=== PATIENT | male | born 1970 | race African-American/Black ===

== ENCOUNTER 2019-05-22 07:49 | Emergency (ER) | payer SELFPAY ==
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
--- OUTSIDE RECORDS SUMMARY | 2019-05-22 07:55 | XMS REPORT | Summary of Care ---
:1970 Author Name Mariah Sneed R.N. 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 Abscess of left thigh (682.6, L02.416) Status: Active Medications Name Dates Details No Reported Medications Refills: 0 Active Allergies and Adverse Reactions Name Dates Details No Known Drug Allergies (Allergy) Status: Active Procedures Procedure Dates Details Procedures not documented Immunization Name Dates Details Immunizations not documented Social History Name Dates Details - Status: Name Dates Details Current every day smoker Vital Signs Date Test Result Details [id number] Height 75 in Status: Results Date Description Value Details Results not documented Plan of Care Name Dates Details Planned Observations Planned Goals not documented Planned Encounters Appointment; GENERAL, SERVICE On: 18-Mar-2019 13:15 Instructions Name Dates Details Instructions not documented Encounters Appointment; GENERAL, SERVICE On: 18-Feb-2019 13:00 Encounter Diagnosis: Problem not documented
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
--- OUTSIDE RECORDS SUMMARY | 2019-05-22 07:55 | XMS REPORT ---
:1970 [facility] Address [address] [place] [address] Care Team Providers Name Role Phone Unavailable Unavailable Unavailable Payers Payer Name Policy Type Policy Number Effective Date Expiration Date Problems This patient has no known problems. Allergies, Adverse Reactions, Alerts Allergy Allergy Status Severity Reaction(s) Onset Inactive Treating Comments Name Type Date Date Clinician No Known DA Active U 2018-12 Allergies - 00:00:0 0 No Known DA Active U 2018-12 Allergies - 00:00:0 0 No Known DA Active U 2011-04 Allergies - 00:00:0 0 Medications This patient has no known medications. Results Test Description Test Time Test Comments Text Results Atomic Results Result Comments ENCEPHALITIS PANEL 2019-02-17 12:39:00 Test Item Value Reference Range Comments AB ENCEPHALITIS ST NEGATIVE TITER NEGATIVE PRICILLA-IGM (test code=ENCSTMAB) SOURCE (test code=SOURCE) CEREBRAL SPINAL FLD AB WEST NILE VIRUS IGM NEGATIVE Results of Arbovirus IgM MELISSA (test code=WESNIABIGM) serve only as an aid todiagnosis and should be interpreted in relation to thepatient's clinical picture, other diagnostic findings, andepidemiological data. Lack of serological evidence forarbovirus infection may reflect testing of acute phase serumobtained before antibodies are produced. Antibodies toflaviviruses exhibit cross reactivity and their detection islimited in it usefulness in differentiating specificflaviviruses. The test has not been approved or cleared bythe Food and Drug Administration. COMMENTS: CSFAB ECHOVIRUS PANEL [id number] 12:39:00 Test Item Value Reference Range Comments AB ECHOVIRUS 9 AB CSF (test <1:10 < 1:10 code=NTBT8PAVVQ) AB ECHOVIRUS 11 AB CSF <1:10 < 1:10 (test code=[id number]) AB ECHOVIRUS 30 AB CSF <1:10 <1:10 This data was established following (test code=[id number]) evaluation of anormal population withoutany current infection of these echovirus subtypes.The clinical significance and criteria for theinterpretation of Echovirussubtypes 6, 7, 9, 11 and 30 performed on cerebrospinalfluid has not beenestablished.The performance characteristics of the listed assays werevalidated by [employer]. The [place] FDA has not approved or clearedthese tests. Theresults of these assays can be used for clinicaldiagnosis without FDA approval.[employer]. is a CLIA certified, CAPaccredited laboratory forperforming high complexity assays such as these.Testing Performed at: [facility] [address] [place], [place] [id number] At: E=[facility] [address] [id number] Medrano MD Ph:[phone] AB ECHOVIRUS 7 AB CSF (test <1:10 < 1:10 code=XQCT1XNGTD) ECHOVIRUS 6 AB CSF (test <1:10 < 1:10 code=AAYJ9NGP) COMMENTS: CSFWEST NILE VIRUS AB PANEL [id number] 12:39:00 Test Item Value Reference Range Comments AB WEST NILE VIRUS IGG Negative Negative No detectable West Nile Virus IgG CSF (test Antibody. If a recentinfection is code=WSNIABGCSF) suspected, another specimen should besubmitted for testing within 7-14 days. AB [place]ST [place] VIRUS IGM Negative Negative No detectable West Nile Virus IgM CSF (test Antibody. If a recentinfection is code=WSNIABMCSF) suspected, another specimen should besubmitted for testing within 7-14 days.Performed At: [address] [id number] Sanjai MD Ph:[phone] COMMENTS: CSFENCEPHALITIS [id number] 10:44:00 Test Item Value Reference Range Comments AB ENCEPHALITIS JUANJO-IGM (test code=ENCSTMAB) TITER NEGATIVE SOURCE (test code=SOURCE) AB WEST NILE VIRUS IGM (test code=WESNIABIGM) COMMENTS: CSFAB ECHOVIRUS PANEL [id number] 10:44:00 Test Item Value Reference Range Comments AB ECHOVIRUS 9 AB CSF (test <1:10 < 1:10 code=SPRZ6JMZNM) AB ECHOVIRUS 11 AB CSF <1:10 < 1:10 (test code=[id number]) AB ECHOVIRUS 30 AB CSF <1:10 <1:10 This data was established following (test code=JEDZ84QDOJR) evaluation of anormal population withoutany current infection of these echovirus subtypes.The clinical significance and criteria for theinterpretation of Echovirussubtypes 6, 7, 9, 11 and 30 performed on cerebrospinalfluid has not beenestablished.The performance characteristics of the listed assays werevalidated by [employer]. The [place] FDA has not approved or clearedthese tests. Theresults of these assays can be used for clinicaldiagnosis without FDA approval.[employer] is a CLIA certified, CAPaccredited laboratory forperforming high complexity assays such as these.Testing Performed at: [facility] [address] [place], [place] [id number] At: E=[facility] [address] [id number] Medrano MD Ph:[phone] AB ECHOVIRUS 7 AB CSF (test <1:10 < 1:10 code=DHNR2EZXMJ) ECHOVIRUS 6 AB CSF (test <1:10 < 1:10 code=HMMY9RQM) COMMENTS: CSFWEST NILE VIRUS AB PANEL [id number] 10:44:00 Test Item Value Reference Range Comments AB WEST NILE VIRUS IGG Negative Negative No detectable West Nile Virus IgG CSF (test Antibody. If a recentinfection is code=WSNIABGCSF) suspected, another specimen should besubmitted for testing within 7-14 days. AB [place] VIRUS IGM Negative Negative No detectable West Nile Virus IgM CSF (test Antibody. If a recentinfection is code=WSNIABMCSF) suspected, another specimen should besubmitted for testing within 7-14 days.Performed At: [address] [id number] Sanjai MD Ph:[phone] COMMENTS: CSFENCEPHALITIS [id number] 15:09:00 Test Item Value Reference Range Comments AB ENCEPHALITIS JUANJO-IGM (test code=ENCSTMAB) TITER NEGATIVE SOURCE (test code=SOURCE) AB WEST NILE VIRUS IGM (test code=WESNIABIGM) COMMENTS: CSFAB ECHOVIRUS PANEL [id number] 15:09:00 Test Item Value Reference Range Comments AB ECHOVIRUS 9 AB CSF (test <1:10 < 1:10 code=BELA3PRSZD) AB ECHOVIRUS 11 AB CSF <1:10 < 1:10 (test code=JECG87MIVKN) AB ECHOVIRUS 30 AB CSF <1:10 <1:10 This data was established following (test code=OQUD98QVYWE) evaluation of anormal population withoutany current infection of these echovirus subtypes.The clinical significance and criteria for theinterpretation of Echovirussubtypes 6, 7, 9, 11 and 30 performed on cerebrospinalfluid has not beenestablished.The performance characteristics of the listed assays werevalidated by [employer]. The [place] FDA has not approved or clearedthese tests. Theresults of these assays can be used for clinicaldiagnosis without FDA approval.[employer] is a CLIA certified, CAPaccredited laboratory forperforming high complexity assays such as these.Testing Performed at: [facility] [address] [place], [place] [id number] At: E=[facility] [address] [id number] Medrano MD Ph:[phone] AB ECHOVIRUS CF (test code=ECHOAB) AB ECHOVIRUS 7 AB CSF (test <1:10 < 1:10 code=CYGP1XPKQT) ECHOVIRUS 6 AB CSF (test <1:10 < 1:10 code=XIYL9LOG) COMMENTS: CSFWEST NILE VIRUS AB PANEL [id number] 15:09:00 Test Item Value Reference Range Comments AB WEST NILE VIRUS IGG Negative Negative No detectable West Nile Virus IgG CSF (test Antibody. If a recentinfection is code=WSNIABGCSF) suspected, another specimen should besubmitted for testing within 7-14 days. AB [place] VIRUS IGM Negative Negative No detectable West Nile Virus IgM CSF (test Antibody. If a recentinfection is code=WSNIABMCSF) suspected, another specimen should besubmitted for testing within 7-14 days.Performed At: [facility] [id number] Sanjai MD Ph:[phone] COMMENTS: CSF- DUP VEIN UNI/[id number] 14:04:00 Name: RADHA DENNISON [facility] : 1970 Age/S: 48 / M [address] [place] [address] Blvd Unit #: [id number] Loc: [place], [id number] Phys: Clovis Francisco MD Acct: [id number] Dis Date: Status: ADM IN PHONE #: [phone] Exam Date: 12/29/2018 1318 FAX #: [phone] Reason: EDEMA/PAIN/REDNESS EXAMS: CPTCODE: [id number] DUP VEIN UNI/LTD [id number] Left lower extremity Doppler US performed on December 29, 2018. CLINICAL HISTORY: Edema, pain, redness. COMPARISON: December 17, 2018. DISCUSSION: Real-time lund scale sonography, color Doppler and spectral waveform analysis was performed of the deep venous structures of the left lower extremity, including the common femoral vein, the femoral vein andthe popliteal vein. There is normal flow and compressibility through out, with normal responseto respiration and augmentation. Visualized calf veins to the level of the ankle are within normal limits. IMPRESSION: 1. No sonographic evidence of deep venous thrombosis in the visualized vessels. at 1404 Reported and signed by: Brigitte Rangel M.D. CC : Tyler Hirsch DO; Clovis Francisco MD Technologist: Alexandra Raymond RDMS(AB) Trnscb Date/Time: 12/29/2018 (1403) Dahlia Franco Print D/T: S: 12/29/2018 (0651) Probe : PAGE 1 Signed [id number] 12:35: 00 Test Item Value Reference Range Comments GLUBED (test code=GLUBED) 127 MG/DL 70-110 Performed by certified line up machine operator at [facility] [id number] 08:12:00 Test Item Value Reference Range Comments GLUBED (test code=GLUBED) 145 MG/DL 70-110 Performed by certified line up machine operator at [facility] CBC W/AUTO [id number] 07:32:00 Test Item Value Reference Range Comments WHITE BLOOD CELL (test code=WBC) 15.42 x10 3/uL 4.5-11.0 RED BLOOD CELL (test code=RBC) 4.94 x10 6/uL 4.00-5.60 HEMOGLOBIN (test code=HGB) 14.4 g/dL 12.5-16.9 HEMATOCRIT (test code=HCT) 44.6 % 37.5-50.7 MEAN CELL VOLUME (test code=MCV) 90.3 fL 81.0-99.0 MEAN CELL HGB (test code=MCH) 29.1 pg 27.0-33.0 MEAN CELL HGB CONCETRATION (test code=MCHC) 32.3 g/dL 33.0-37.0 RED CELL DISTRIBUTION WIDTH CV (test 13.8 % 11.5-14.5 code=RDW) RED CELL DISTRIBUTION WIDTH SD (test 46.0 fL 37.0-54.0 code=RDW-SD) PLATELET COUNT (test code=PLT) 242 x10 3/uL 150-400 MEAN PLATELET VOLUME (test code=MPV) 10.7 fL 7.0-9.0 NEUTROPHIL % (test code=NT%) 68.6 % 56.0-77.0 IMMATURE GRANULOCYTE % (test code=IG%) 2.3 % 0.0-2.0 LYMPHOCYTE % (test code=LY%) 21.1 % 14.0-32.0 MONOCYTE % (test code=MO%) 7.6 % 4.8-9.0 EOSINOPHIL % (test code=EO%) 0.1 % 0.3-3.7 BASOPHIL % (test code=BA%) 0.3 % 0.0-2.0 NUCLEATED RBC % (test code=NRBC%) 0.0 % 0-0 NEUTROPHIL # (test code=NT#) 10.57 x10 3/uL 2.0-7.6 IMMATURE GRANULOCYTE # (test code=IG#) 0.36 x10 3/uL 0.00-0.03 LYMPHOCYTE # (test code=LY#) 3.25 x10 3/uL 1.0-3.8 MONOCYTE # (test code=MO#) 1.17 x10 3/uL 0.1-0.8 EOSINOPHIL # (test code=EO#) 0.02 x10 3/uL 0.0-0.2 BASOPHIL # (test code=BA#) 0.05 x10 3/uL 0.0-0.2 NUCLEATED RBC # (test code=NRBC#) 0.00 x10 3/uL 0.0-0.1 MANUAL DIFF REQUIRED (test code=MDIFF) NO BASIC METABOLIC [id number] 07:31:00 Test Item Value Reference Range Comments SODIUM (test code=NA) 132 mEq/L 134-147 POTASSIUM (test code=K) 4.4 mEq/L 3.4-5.0 CHLORIDE (test code=CL) 98 mEq/L 100-108 CARBON DIOXIDE (test code=CO2) 28 mEq/L 21-33 ANION GAP (test code=GAP) 10 0-20 GLUCOSE (test code=GLU) 112 mg/dL 70-110 BLOOD UREA NITROGEN (test 13 mg/dL 7-18 code=BUN) GLOMERULAR FILTRATION RATE 85.7 90-95 Units of measure=ml/min/1.73 (test code=GFR) m2 CREATININE (test code=CREAT) 1.1 mg/dL 0.6-1.3 CALCIUM (test code=CA) 8.8 mg/dL 8.0-10.5 [id number] 20:42:00 Test Item Value Reference Range Comments GLUBED (test code=GLUBED) 174 MG/DL 70-110 Performed by certified line up machine operator at [facility] [id number] 17:08:00 Test Item Value Reference Range Comments GLUBED (test code=GLUBED) 129 MG/DL 70-110 Performed by certified line up machine operator at [facility] [id number] 12:27:00 Test Item Value Reference Range Comments GLUBED (test code=GLUBED) 86 MG/DL 70-110 Performed by certified line up machine operator at [facility] CBC W/AUTO [id number] 09:02:00 Test Item Value Reference Range Comments WHITE BLOOD CELL (test code=WBC) 13.40 x10 3/uL 4.5-11.0 RED BLOOD CELL (test code=RBC) 4.95 x10 6/uL 4.00-5.60 HEMOGLOBIN (test code=HGB) 14.2 g/dL 12.5-16.9 HEMATOCRIT (test code=HCT) 44.7 % 37.5-50.7 MEAN CELL VOLUME (test code=MCV) 90.3 fL 81.0-99.0 MEAN CELL HGB (test code=MCH) 28.7 pg 27.0-33.0 MEAN CELL HGB CONCETRATION (test code=MCHC) 31.8 g/dL 33.0-37.0 RED CELL DISTRIBUTION WIDTH CV (test 13.9 % 11.5-14.5 code=RDW) RED CELL DISTRIBUTION WIDTH SD (test 46.2 fL 37.0-54.0 code=RDW-SD) PLATELET COUNT (test code=PLT) 239 x10 3/uL 150-400 MEAN PLATELET VOLUME (test code=MPV) 10.6 fL 7.0-9.0 NEUTROPHIL % (test code=NT%) 58.9 % 56.0-77.0 IMMATURE GRANULOCYTE % (test code=IG%) 1.9 % 0.0-2.0 LYMPHOCYTE % (test code=LY%) 31.4 % 14.0-32.0 MONOCYTE % (test code=MO%) 7.4 % 4.8-9.0 EOSINOPHIL % (test code=EO%) 0.1 % 0.3-3.7 BASOPHIL % (test code=BA%) 0.3 % 0.0-2.0 NUCLEATED RBC % (test code=NRBC%) 0.0 % 0-0 NEUTROPHIL # (test code=NT#) 7.88 x10 3/uL 2.0-7.6 IMMATURE GRANULOCYTE # (test code=IG#) 0.26 x10 3/uL 0.00-0.03 LYMPHOCYTE # (test code=LY#) 4.21 x10 3/uL 1.0-3.8 MONOCYTE # (test code=MO#) 0.99 x10 3/uL 0.1-0.8 EOSINOPHIL # (test code=EO#) 0.02 x10 3/uL 0.0-0.2 BASOPHIL # (test code=BA#) 0.04 x10 3/uL 0.0-0.2 NUCLEATED RBC # (test code=NRBC#) 0.00 x10 3/uL 0.0-0.1 MANUAL DIFF REQUIRED (test code=MDIFF) NO [id number] 08:21:00 Test Item Value Reference Range Comments GLUBED (test code=GLUBED) 121 MG/DL 70-110 Performed by certified line up machine operator at [facility] BASIC METABOLIC [id number] 07:19:00 Test Item Value Reference Range Comments SODIUM (test code=NA) 134 mEq/L 134-147 POTASSIUM (test code=K) 4.4 mEq/L 3.4-5.0 CHLORIDE (test code=CL) 100 mEq/L 100-108 CARBON DIOXIDE (test code=CO2) 28 mEq/L 21-33 ANION GAP (test code=GAP) 10 0-20 GLUCOSE (test code=GLU) 114 mg/dL 70-110 BLOOD UREA NITROGEN (test 19 mg/dL 7-18 code=BUN) GLOMERULAR FILTRATION RATE 95.7 90-95 Units of measure=ml/min/1.73 (test code=GFR) m2 CREATININE (test code=CREAT) 1.0 mg/dL 0.6-1.3 CALCIUM (test code=CA) 8.8 mg/dL 8.0-10.5 [id number] 20:40:00 Test Item Value Reference Range Comments GLUBED (test code=GLUBED) 181 MG/DL 70-110 Performed by certified line up machine operator at [facility] [id number] 20:39:00 Test Item Value Reference Range Comments GLUBED (test code=GLUBED) 121 MG/DL 70-110 Performed by certified line up machine operator at [facility] [id number] 12:21:00 Test Item Value Reference Range Comments GLUBED (test code=GLUBED) 144 MG/DL 70-110 Performed by certified line up machine operator at [facility] BASIC METABOLIC [id number] 08:23:00 Test Item Value Reference Range Comments SODIUM (test code=NA) 135 mEq/L 134-147 POTASSIUM (test code=K) 4.3 mEq/L 3.4-5.0 CHLORIDE (test code=CL) 100 mEq/L 100-108 CARBON DIOXIDE (test code=CO2) 28 mEq/L 21-33 ANION GAP (test code=GAP) 11 0-20 GLUCOSE (test code=GLU) 94 mg/dL 70-110 BLOOD UREA NITROGEN (test 18 mg/dL 7-18 code=BUN) GLOMERULAR FILTRATION RATE 123.8 90-95 Units of measure=ml/min/1.73 (test code=GFR) m2 CREATININE (test code=CREAT) 0.8 mg/dL 0.6-1.3 CALCIUM (test code=CA) 8.7 mg/dL 8.0-10.5 [id number] 08:19:00 Test Item Value Reference Range Comments GLUBED (test code=GLUBED) 96 MG/DL 70-110 Performed by certified line up machine operator at [facility] CBC W/AUTO [id number] 07:24:00 Test Item Value Reference Range Comments WHITE BLOOD CELL (test code=WBC) 14.60 x10 3/uL 4.5-11.0 RED BLOOD CELL (test code=RBC) 5.06 x10 6/uL 4.00-5.60 HEMOGLOBIN (test code=HGB) 14.5 g/dL 12.5-16.9 HEMATOCRIT (test code=HCT) 45.9 % 37.5-50.7 MEAN CELL VOLUME (test code=MCV) 90.7 fL 81.0-99.0 MEAN CELL HGB (test code=MCH) 28.7 pg 27.0-33.0 MEAN CELL HGB CONCETRATION (test code=MCHC) 31.6 g/dL 33.0-37.0 RED CELL DISTRIBUTION WIDTH CV (test 13.8 % 11.5-14.5 code=RDW) RED CELL DISTRIBUTION WIDTH SD (test 46.1 fL 37.0-54.0 code=RDW-SD) PLATELET COUNT (test code=PLT) 262 x10 3/uL 150-400 MEAN PLATELET VOLUME (test code=MPV) 10.9 fL 7.0-9.0 NEUTROPHIL % (test code=NT%) 57.7 % 56.0-77.0 IMMATURE GRANULOCYTE % (test code=IG%) 2.2 % 0.0-2.0 LYMPHOCYTE % (test code=LY%) 32.5 % 14.0-32.0 MONOCYTE % (test code=MO%) 7.1 % 4.8-9.0 EOSINOPHIL % (test code=EO%) 0.1 % 0.3-3.7 BASOPHIL % (test code=BA%) 0.4 % 0.0-2.0 NUCLEATED RBC % (test code=NRBC%) 0.0 % 0-0 NEUTROPHIL # (test code=NT#) 8.41 x10 3/uL 2.0-7.6 IMMATURE GRANULOCYTE # (test code=IG#) 0.32 x10 3/uL 0.00-0.03 LYMPHOCYTE # (test code=LY#) 4.75 x10 3/uL 1.0-3.8 MONOCYTE # (test code=MO#) 1.04 x10 3/uL 0.1-0.8 EOSINOPHIL # (test code=EO#) 0.02 x10 3/uL 0.0-0.2 BASOPHIL # (test code=BA#) 0.06 x10 3/uL 0.0-0.2 NUCLEATED RBC # (test code=NRBC#) 0.00 x10 3/uL 0.0-0.1 MANUAL DIFF REQUIRED (test code=MDIFF) NO [id number] 20:25:00 Test Item Value Reference Range Comments GLUBED (test code=GLUBED) 157 MG/DL 70-110 Performed by certified line up machine operator at [facility] [id number] 20:25:00 Test Item Value Reference Range Comments GLUBED (test code=GLUBED) 112 MG/DL 70-110 Performed by certified line up machine operator at [facility] CSF IGG SYNTHESIS [id number] 13:16:00 Test Item Value Reference Range Comments CSF ALBUMIN (test code=ALBCSF) 77 mg/dL 11-48 CSF IMMUNOGLOBULIN G (test 10.2 mg/dL 0.0-8.6 code=IGGCSF) CSF IGG INDEX (test 0.8 0.0-0.7 code=IGGINCSF) CSF IGG SYNTHESIS (test 21.6 mg/day 9.9 TO +3.3 code=IGGSYNCSF) CSF IGG/ALBUMIN RATIO (test 0.13 0.00-0.25 code=IGGALBCSF) SERUM IMMUNOGLOBULIN G (test 688 mg/dL 700-1600 code=IGGMS) SERUM ALBUMIN (test 4.3 g/dL 3.5-5.5 code=ALBMS) SERUM ALBUMIN INDEX (test 18 0-8 Relationship to code=ALBINDMS) blood-brain barrier: Consistent with an intact barrier <9 Slight impairment 9 - 14 Moderate impairment 14 - 30 Severe impairment 30 - 100 Complete breakdown >100Performed At: [facility] [id number] Lyle MD Ph:[phone] At: [facility] [id number] Paulie Monteiro MD Ph:[phone] CSF OLIGOCLONAL BAND [id number] 13:16:00 Test Item Value Reference Range Comments CSF OLIGOCLONAL BANDS (test () Zero (0) oligoclonal bands were code=OLIGCSF) observed in the CSF.Interpretation: Criteria for Positivity: Four (4) or more oligoclonalbands observed only in the CSF have been shown to be mostconsistent with MS using our method. [Sarah , Antonio, Cody GREER, and Carter JA: Cerebrospinal FluidOligoclonal Bands in the Diagnosis of Multiple Sclerosis.Am J Clin Pathol 120(5):672-675, 2003]. Oligoclonal bands that are present only in the CSF havebeen associated with a variety of inflammatory braindiseases such as multiple sclerosis (MS), subacuteencephalitis, neurosyphilis, etc. Increased IgG in the CSFis not specific for MS, but is an indication of chronicneural inflammation. Clinical correlation indicated. Approximately 2-3% of clinically confirmed MS patientsshow little or no evidence of oligoclonal bands in theCSF; however oligoclonal bands may develop as the diseaseprogresses. Oligoclonal Banding testing performed using IsoelectricFocusing (IEF) and immunoblotting methodology.Performed At: [facility] [id number] Lyle MD Ph:[phone] [id number] 12:24:00 Test Item Value Reference Range Comments GLUBED (test code=GLUBED) 154 MG/DL 70-110 Performed by certified line up machine operator at [facility] [id number] 11:00:00 Test Item Value Reference Range Comments GLUBED (test code=GLUBED) 121 MG/DL 70-110 Performed by certified line up machine operator at [facility] BASIC METABOLIC [id number] 07:34:00 Test Item Value Reference Range Comments SODIUM (test code=NA) 135 mEq/L 134-147 POTASSIUM (test code=K) 4.5 mEq/L 3.4-5.0 CHLORIDE (test code=CL) 101 mEq/L 100-108 CARBON DIOXIDE (test code=CO2) 26 mEq/L 21-33 ANION GAP (test code=GAP) 13 0-20 GLUCOSE (test code=GLU) 114 mg/dL 70-110 BLOOD UREA NITROGEN (test 19 mg/dL 7-18 code=BUN) GLOMERULAR FILTRATION RATE 108.1 90-95 Units of measure=ml/min/1.73 (test code=GFR) m2 CREATININE (test code=CREAT) 0.9 mg/dL 0.6-1.3 CALCIUM (test code=CA) 8.5 mg/dL 8.0-10.5 CBC W/AUTO [id number] 07:11:00 Test Item Value Reference Range Comments WHITE BLOOD CELL (test code=WBC) 20.39 x10 3/uL 4.5-11.0 RED BLOOD CELL (test code=RBC) 4.99 x10 6/uL 4.00-5.60 HEMOGLOBIN (test code=HGB) 14.4 g/dL 12.5-16.9 HEMATOCRIT (test code=HCT) 44.8 % 37.5-50.7 MEAN CELL VOLUME (test code=MCV) 89.8 fL 81.0-99.0 MEAN CELL HGB (test code=MCH) 28.9 pg 27.0-33.0 MEAN CELL HGB CONCETRATION (test code=MCHC) 32.1 g/dL 33.0-37.0 RED CELL DISTRIBUTION WIDTH CV (test 13.5 % 11.5-14.5 code=RDW) RED CELL DISTRIBUTION WIDTH SD (test 44.7 fL 37.0-54.0 code=RDW-SD) PLATELET COUNT (test code=PLT) 270 x10 3/uL 150-400 MEAN PLATELET VOLUME (test code=MPV) 11.0 fL 7.0-9.0 NEUTROPHIL % (test code=NT%) 75.1 % 56.0-77.0 IMMATURE GRANULOCYTE % (test code=IG%) 2.3 % 0.0-2.0 LYMPHOCYTE % (test code=LY%) 10.5 % 14.0-32.0 MONOCYTE % (test code=MO%) 11.7 % 4.8-9.0 EOSINOPHIL % (test code=EO%) 0.0 % 0.3-3.7 BASOPHIL % (test code=BA%) 0.4 % 0.0-2.0 NUCLEATED RBC % (test code=NRBC%) 0.0 % 0-0 NEUTROPHIL # (test code=NT#) 15.32 x10 3/uL 2.0-7.6 IMMATURE GRANULOCYTE # (test code=IG#) 0.46 x10 3/uL 0.00-0.03 LYMPHOCYTE # (test code=LY#) 2.15 x10 3/uL 1.0-3.8 MONOCYTE # (test code=MO#) 2.38 x10 3/uL 0.1-0.8 EOSINOPHIL # (test code=EO#) 0.00 x10 3/uL 0.0-0.2 BASOPHIL # (test code=BA#) 0.08 x10 3/uL 0.0-0.2 NUCLEATED RBC # (test code=NRBC#) 0.00 x10 3/uL 0.0-0.1 MANUAL DIFF REQUIRED (test code=MDIFF) NO [id number] 01:11:00 Test Item Value Reference Range Comments GLUBED (test code=GLUBED) 185 MG/DL 70-110 Performed by certified line up machine operator at [facility] [id number] 17:12:00 Test Item Value Reference Range Comments GLUBED (test code=GLUBED) 183 MG/DL 70-110 Performed by certified line up machine operator at [facility] CSF [id number] 14:09:00 Test Item Value Reference Range Comments CSF PROTEIN (test 106.0 mg/dL 0.0-44.0 code=PROTECSF) CSF PREALBUMIN % (test 2.2 % 2.2-7.1 code=PREALB%) CSF ALBUMIN % (test 61.3 % 56.8-76.4 code=ALBCSF%) CSF PCKUW-7-HHQFSSBG % 3.4 % 1.1-6.6 (test code=A1GCSF%) CSF KPUON-9-FGYLGSYE % 10.0 % 3.0-12.6 (test code=A2GCSF%) CSF BETA GLOBULIN % (test 13.8 % 7.3-17.9 code=BGCSF%) CSF GAMMA GLOBULIN % 9.3 % 3.0-13.0 Protein electrophoresis scan (test code=GGCSF%) will follow via computer,mail, or eeg tech delivery. CSF M SPIKE % (test Not Observed % Not Observed Performed At: [facility] code=MSCSF%) [address] [id number] Paulie Monteiro MD Ph:[phone] At: [facility] [id number] Lyle MD Ph:[phone] COMMENTS: PLEASE USE TUBE #3CSF VDRL [id number] 14:09:00 Test Item Value Reference Range Comments CSF VDRL QUAL (test Non Reactive Non [place]:<1:1 Performed At: [facility] code=VDRLCSFQL) [address] [id number] Lyle MD Ph:[phone] COMMENTS: PLEASE USE TUBE #3CSF IGG SYNTHESIS [id number] 14:09:00 Test Item Value Reference Range Comments CSF ALBUMIN (test code=ALBCSF) 77 mg/dL 11-48 CSF IMMUNOGLOBULIN G (test 10.2 mg/dL 0.0-8.6 code=IGGCSF) CSF IGG INDEX (test 0.8 0.0-0.7 code=IGGINCSF) CSF IGG SYNTHESIS (test 21.6 mg/day 9.9 TO +3.3 code=IGGSYNCSF) CSF IGG/ALBUMIN RATIO (test 0.13 0.00-0.25 code=IGGALBCSF) SERUM IMMUNOGLOBULIN G (test 688 mg/dL 700-1600 code=IGGMS) SERUM ALBUMIN (test 4.3 g/dL 3.5-5.5 code=ALBMS) SERUM ALBUMIN INDEX (test 18 0-8 Relationship to code=ALBINDMS) blood-brain barrier: Consistent with an intact barrier <9 Slight impairment 9 - 14 Moderate impairment 14 - 30 Severe impairment 30 - 100 Complete breakdown >100Performed At: [facility] [id number] Lyle MD Ph:[phone] At: [facility] [id number] [place], [place] [id number] Paulie Monteiro MD Ph:[phone] CSF OLIGOCLONAL BAND [id number] 14:09:00 Test Item Value Reference Range Comments CSF OLIGOCLONAL BANDS (test () Zero (0) oligoclonal bands were code=OLIGCSF) observed in the CSF.Interpretation: Criteria for Positivity: Four (4) or more oligoclonalbands observed only in the CSF have been shown to be mostconsistent with MS using our method. [Sarah , Antonio, Cody GREER, and Carter HANNA: Cerebrospinal FluidOligoclonal Bands in the Diagnosis of Multiple Sclerosis.Am J Clin Pathol 120(5):672-675, 2003]. Oligoclonal bands that are present only in the CSF havebeen associated with a variety of inflammatory braindiseases such as multiple sclerosis (MS), subacuteencephalitis, neurosyphilis, etc. Increased IgG in the CSFis not specific for MS, but is an indication of chronicneural inflammation. Clinical correlation indicated. Approximately 2-3% of clinically confirmed MS patientsshow little or no evidence of oligoclonal bands in theCSF; however oligoclonal bands may develop as the diseaseprogresses. Oligoclonal Banding testing performed using IsoelectricFocusing (IEF) and immunoblotting methodology.Performed At: [facility] [address] [id number] Lyle MD Ph:[phone] OLIGOCLONAL BAND SR (test code=OLIGSR) [id number] 13:17:00 Test Item Value Reference Range Comments GLUBED (test code=GLUBED) 253 MG/DL 70-110 Performed by certified line up machine operator at [facility] ADENOVIRUS DNA, REAL TIME [id number] 10:23:00 Test Item Value Reference Range Comments ADENOVIRUS DNA, REAL TIME PCR Not Detected copies/mL (test code=ADENOPCRQNBF) TESTING PERFORMED AT LOW VOLUME ON CSF SPECIMEN FORADENOVIRUS, MAY AFFECT RESULTS. Assay Range: 109 copies/mL to 1.00E+10 copies/mLThe limit of quantitation (LOQ) is 109 copies/mL.Adenovirus DNA detected below the LOQ will be reported asDetected:<109 copies/mL. This test was developed and its performance characteristics determined by [employer]. It has not been cleared or approved by the U.S. Food and Drug Administration. Results should be used in conjunction with clinical findings, and should not form the sole basis for a diagnosis or treatment decision. [id number] 09:03:00 Test Item Value Reference Range Comments GLUBED (test code=GLUBED) 146 MG/DL 70-110 Performed by certified line up machine operator at [facility] BASIC METABOLIC [id number] 07:47:00 Test Item Value Reference Range Comments SODIUM (test code=NA) 134 mEq/L 134-147 POTASSIUM (test code=K) 4.4 mEq/L 3.4-5.0 CHLORIDE (test code=CL) 101 mEq/L 100-108 CARBON DIOXIDE (test code=CO2) 25 mEq/L 21-33 ANION GAP (test code=GAP) 12 0-20 GLUCOSE (test code=GLU) 145 mg/dL 70-110 BLOOD UREA NITROGEN (test 22 mg/dL 7-18 code=BUN) GLOMERULAR FILTRATION RATE 108.1 90-95 Units of measure=ml/min/1.73 (test code=GFR) m2 CREATININE (test code=CREAT) 0.9 mg/dL 0.6-1.3 CALCIUM (test code=CA) 8.5 mg/dL 8.0-10.5 CBC W/AUTO [id number] 07:04:00 Test Item Value Reference Range Comments WHITE BLOOD CELL (test code=WBC) 19.69 x10 3/uL 4.5-11.0 RED BLOOD CELL (test code=RBC) 4.85 x10 6/uL 4.00-5.60 HEMOGLOBIN (test code=HGB) 14.2 g/dL 12.5-16.9 HEMATOCRIT (test code=HCT) 44.3 % 37.5-50.7 MEAN CELL VOLUME (test code=MCV) 91.3 fL 81.0-99.0 MEAN CELL HGB (test code=MCH) 29.3 pg 27.0-33.0 MEAN CELL HGB CONCETRATION (test code=MCHC) 32.1 g/dL 33.0-37.0 RED CELL DISTRIBUTION WIDTH CV (test 13.8 % 11.5-14.5 code=RDW) RED CELL DISTRIBUTION WIDTH SD (test 46.3 fL 37.0-54.0 code=RDW-SD) PLATELET COUNT (test code=PLT) 275 x10 3/uL 150-400 MEAN PLATELET VOLUME (test code=MPV) 10.7 fL 7.0-9.0 NEUTROPHIL % (test code=NT%) 80.5 % 56.0-77.0 IMMATURE GRANULOCYTE % (test code=IG%) 1.6 % 0.0-2.0 LYMPHOCYTE % (test code=LY%) 10.5 % 14.0-32.0 MONOCYTE % (test code=MO%) 7.2 % 4.8-9.0 EOSINOPHIL % (test code=EO%) 0.0 % 0.3-3.7 BASOPHIL % (test code=BA%) 0.2 % 0.0-2.0 NUCLEATED RBC % (test code=NRBC%) 0.0 % 0-0 NEUTROPHIL # (test code=NT#) 15.85 x10 3/uL 2.0-7.6 IMMATURE GRANULOCYTE # (test code=IG#) 0.32 x10 3/uL 0.00-0.03 LYMPHOCYTE # (test code=LY#) 2.07 x10 3/uL 1.0-3.8 MONOCYTE # (test code=MO#) 1.41 x10 3/uL 0.1-0.8 EOSINOPHIL # (test code=EO#) 0.00 x10 3/uL 0.0-0.2 BASOPHIL # (test code=BA#) 0.04 x10 3/uL 0.0-0.2 NUCLEATED RBC # (test code=NRBC#) 0.00 x10 3/uL 0.0-0.1 MANUAL DIFF REQUIRED (test code=MDIFF) NO [id number] 00:25:00 Test Item Value Reference Range Comments GLUBED (test code=GLUBED) 282 MG/DL 70-110 Performed by certified line up machine operator at [facility] [id number] 17:03:00 Test Item Value Reference Range Comments GLUBED (test code=GLUBED) 246 MG/DL 70-110 Performed by certified line up machine operator at [facility] CSF [id number] 15:10:00 Test Item Value Reference Range Comments CSF PROTEIN (test 106.0 mg/dL 0.0-44.0 code=PROTECSF) CSF PREALBUMIN % (test 2.2 % 2.2-7.1 code=PREALB%) CSF ALBUMIN % (test 61.3 % 56.8-76.4 code=ALBCSF%) CSF XYROQ-1-RXRFBVQW % 3.4 % 1.1-6.6 (test code=A1GCSF%) CSF OVEXS-6-ZSBTGKAY % 10.0 % 3.0-12.6 (test code=A2GCSF%) CSF BETA GLOBULIN % (test 13.8 % 7.3-17.9 code=BGCSF%) CSF GAMMA GLOBULIN % 9.3 % 3.0-13.0 Protein electrophoresis scan (test code=GGCSF%) will follow via computer,mail, or eeg tech delivery. CSF M SPIKE % (test Not Observed % Not Observed Performed At: [facility] code=MSCSF%) [address] [id number] Kyle L MD Ph:[phone] At: [facility] [address] [id number] Sanjai MD Ph:[phone] COMMENTS: PLEASE USE TUBE #3CSF VDRL [id number] 15:10:00 Test Item Value Reference Range Comments CSF VDRL QUAL (test code=VDRLCSFQL) COMMENTS: PLEASE USE TUBE #3ENCEPHALITIS [id number] 14:08:00 Test Item Value Reference Range Comments AB ENCEPHALITIS JUANJO-IGM (test code=ENCSTMAB) TITER NEGATIVE SOURCE (test code=SOURCE) AB WEST NILE VIRUS IGM (test code=WESNIABIGM) COMMENTS: CSFAB ECHOVIRUS PANEL [id number] 14:08:00 Test Item Value Reference Range Comments AB ECHOVIRUS 9 AB CSF (test code=DWCT5XNKSU) AB ECHOVIRUS 11 AB CSF (test code=ROGN23LSMYV) AB ECHOVIRUS 30 AB CSF (test code=COCQ76QTABI) AB ECHOVIRUS CF (test code=ECHOAB) AB ECHOVIRUS 7 AB CSF (test code=NDEV2LDCHQ) ECHOVIRUS 6 AB CSF (test code=SINL9JQH) COMMENTS: CSFWEST NILE VIRUS AB PANEL [id number] 14:08:00 Test Item Value Reference Range Comments AB WEST NILE VIRUS IGG Negative Negative No detectable West Nile Virus IgG CSF (test Antibody. If a recentinfection is code=WSNIABGCSF) suspected, another specimen should besubmitted for testing within 7-14 days. AB WEST NILE VIRUS IGM Negative Negative No detectable West Nile Virus IgM CSF (test Antibody. If a recentinfection is code=WSNIABMCSF) suspected, another specimen should besubmitted for testing within 7-14 days.Performed At: [facility] [id number] Lyle MD Ph:[phone] COMMENTS: [id number] 12:09:00 Test Item Value Reference Range Comments GLUBED (test code=GLUBED) 161 MG/DL 70-110 Performed by certified line up machine operator at [facility] CSF IGG SYNTHESIS [id number] 12:09:00 Test Item Value Reference Range Comments CSF ALBUMIN (test code=ALBCSF) 77 mg/dL 11-48 CSF IMMUNOGLOBULIN G (test 10.2 mg/dL 0.0-8.6 code=IGGCSF) CSF IGG INDEX (test 0.8 0.0-0.7 code=IGGINCSF) CSF IGG SYNTHESIS (test 21.6 mg/day 9.9 TO +3.3 code=IGGSYNCSF) CSF IGG/ALBUMIN RATIO (test 0.13 0.00-0.25 code=IGGALBCSF) SERUM IMMUNOGLOBULIN G (test 688 mg/dL 700-1600 code=IGGMS) SERUM ALBUMIN (test 4.3 g/dL 3.5-5.5 code=ALBMS) SERUM ALBUMIN INDEX (test 18 0-8 Relationship to code=ALBINDMS) blood-brain barrier: Consistent with an intact barrier <9 Slight impairment 9 - 14 Moderate impairment 14 - 30 Severe impairment 30 - 100 Complete breakdown >100Performed At: [facility] [id number] Lyle MD Ph:[phone] At: [address] [id number] Kyle L MD Ph:[phone] CSF OLIGOCLONAL BAND [id number] 12:09:00 Test Item Value Reference Range Comments CSF OLIGOCLONAL BANDS (test code=OLIGCSF) OLIGOCLONAL BAND SR (test code=OLIGSR) [id number] 08:41:00 Test Item Value Reference Range Comments GLUBED (test code=GLUBED) 162 MG/DL 70-110 Performed by certified line up machine operator at [facility] CBC W/AUTO [id number] 07:39:00 Test Item Value Reference Range Comments WHITE BLOOD CELL (test code=WBC) 18.87 x10 3/uL 4.5-11.0 RED BLOOD CELL (test code=RBC) 4.97 x10 6/uL 4.00-5.60 HEMOGLOBIN (test code=HGB) 14.5 g/dL 12.5-16.9 HEMATOCRIT (test code=HCT) 44.8 % 37.5-50.7 MEAN CELL VOLUME (test code=MCV) 90.1 fL 81.0-99.0 MEAN CELL HGB (test code=MCH) 29.2 pg 27.0-33.0 MEAN CELL HGB CONCETRATION (test code=MCHC) 32.4 g/dL 33.0-37.0 RED CELL DISTRIBUTION WIDTH CV (test 13.8 % 11.5-14.5 code=RDW) RED CELL DISTRIBUTION WIDTH SD (test 45.8 fL 37.0-54.0 code=RDW-SD) PLATELET COUNT (test code=PLT) 294 x10 3/uL 150-400 MEAN PLATELET VOLUME (test code=MPV) 10.9 fL 7.0-9.0 NEUTROPHIL % (test code=NT%) 77.6 % 56.0-77.0 IMMATURE GRANULOCYTE % (test code=IG%) 1.9 % 0.0-2.0 LYMPHOCYTE % (test code=LY%) 9.8 % 14.0-32.0 MONOCYTE % (test code=MO%) 10.5 % 4.8-9.0 EOSINOPHIL % (test code=EO%) 0.0 % 0.3-3.7 BASOPHIL % (test code=BA%) 0.2 % 0.0-2.0 NUCLEATED RBC % (test code=NRBC%) 0.0 % 0-0 NEUTROPHIL # (test code=NT#) 14.66 x10 3/uL 2.0-7.6 IMMATURE GRANULOCYTE # (test code=IG#) 0.36 x10 3/uL 0.00-0.03 LYMPHOCYTE # (test code=LY#) 1.84 x10 3/uL 1.0-3.8 MONOCYTE # (test code=MO#) 1.98 x10 3/uL 0.1-0.8 EOSINOPHIL # (test code=EO#) 0.00 x10 3/uL 0.0-0.2 BASOPHIL # (test code=BA#) 0.03 x10 3/uL 0.0-0.2 NUCLEATED RBC # (test code=NRBC#) 0.00 x10 3/uL 0.0-0.1 MANUAL DIFF REQUIRED (test code=MDIFF) NO BASIC METABOLIC [id number] 07:26:00 Test Item Value Reference Range Comments SODIUM (test code=NA) 134 mEq/L 134-147 POTASSIUM (test code=K) 4.4 mEq/L 3.4-5.0 CHLORIDE (test code=CL) 101 mEq/L 100-108 CARBON DIOXIDE (test code=CO2) 27 mEq/L 21-33 ANION GAP (test code=GAP) 10 0-20 GLUCOSE (test code=GLU) 156 mg/dL 70-110 BLOOD UREA NITROGEN (test 22 mg/dL 7-18 code=BUN) GLOMERULAR FILTRATION RATE 108.1 90-95 Units of measure=ml/min/1.73 (test code=GFR) m2 CREATININE (test code=CREAT) 0.9 mg/dL 0.6-1.3 CALCIUM (test code=CA) 8.7 mg/dL 8.0-10.5 [id number] 21:16:00 Test Item Value Reference Range Comments GLUBED (test code=GLUBED) 153 MG/DL 70-110 Performed by certified line up machine operator at [facility] [id number] 16:59:00 Test Item Value Reference Range Comments GLUBED (test code=GLUBED) 202 MG/DL 70-110 Performed by certified line up machine operator at [facility] [id number] 12:28:00 Test Item Value Reference Range Comments GLUBED (test code=GLUBED) 164 MG/DL 70-110 Performed by certified line up machine operator at [facility] CSF ANGIOTENSIN-I CONVERT [id number] 12:08:00 Test Item Value Reference Range Comments CSF ANGIOTENSIN-I <1.5 U/L 0.0-2.8 Results of this test are labeled for CONVERT ENZ (test research purposes onlyby the assay's code=ACECSF) children's minister. The performancecharacteristics of this assay have not been established bythe children's minister. The result should not be used fortreatment or for diagnostic purposes without confirmationof the diagnosis by another medically establisheddiagnostic product or procedure. The performancecharacteristics were determined by [employer].Performed At: [facility] [id number] Sanjai MD Ph:[phone] COMMENTS: CSFSURGICAL [id number] 08:59:00 RUN DATE: [facility] *LIVE* PAGE 1 RUN TIME: 0900 Specimen Inquiry RUN USER: INTERFACE PATIENT: RADHA DENNISON [facility] #: [id number] AGE/SX: 48/M ROOM: [facility] [id number]/14REG DR: Tyler Hirsch : 66 BED: 1 DIS: STATUS: ADM IN TLOC: --- --------- SPEC #: [id number] RECD: 12/21/18 STATUS: FELICIANO BILLINGSLEY #: [id number] MARY: 12/21/18 [facility] DR: Tyler Hirsch DO ENTERED: 12/23/18 SP TYPE: SURG SPEC OTHR DR: Warren Menjivar MD, Kinjal MD Fuke, Chris T MD Jafari, Neda DOORBANNER DEL E WEBB MEDICAL CENTERED: GM LEVEL 4 CODES: [id number] - CEREBROSPINAL F COPIES TO: Warren Menjivar MD [address] [place] [address] [place] [address] [facility] [address] [place] [address] Graciela Gonzalez MD 400 [facility] [address] [address] Ritesh Martinez MD 1200 [facility] [address] [place], [place] [id number] Agnes Booker DO 400 [facility] [address] [place] [address] PROCEDURES: GM LEVEL 4 (Incomplete) TISSUES: 1. CEREBROSPINAL FLUID, NOS - CSF, cytologyFINAL DIAGNOSIS CSF, cytology: Scant cellularity, rare lymphoid cells present. CONTINUED ON NEXT PAGE RUN DATE: 12/23/18 [facility] *LIVE* PAGE 2 RUN TIME: 0900 Specimen Inquiry RUN USER: INTERFACE SPEC #: [id number] PATIENT: RADHA DENNISON #[id number] (Continued) GROSS AND MICROSCOPIC GROSS DESCRIPTION: Received is 1/2 cc of clear cerebral spinal fluid for cytologic evaluation. MICROSCOPIC EXAMINATION: Cytospin smears of the CSF reveal scant cellularity with rare lymphoid cell and background amorphous debris. No cells diagnostic of malignancy are identified. POST-OP DIAGNOSIS Bilateral weakness PRE-OP DIAGNOSIS Bilateral weakness Signed SIGNATURE ON FILE Arturo Huerta DO 12/23/18 0859 END OF REPORT [id number] 08:47:00 Test Item Value Reference Range Comments GLUBED (test code=GLUBED) 162 MG/DL 70-110 Performed by certified line up machine operator at [facility] BASIC METABOLIC [id number] 08:18:00 Test Item Value Reference Range Comments SODIUM (test code=NA) 134 mEq/L 134-147 POTASSIUM (test code=K) 4.6 mEq/L 3.4-5.0 CHLORIDE (test code=CL) 100 mEq/L 100-108 CARBON DIOXIDE (test code=CO2) 27 mEq/L 21-33 ANION GAP (test code=GAP) 12 0-20 GLUCOSE (test code=GLU) 147 mg/dL 70-110 BLOOD UREA NITROGEN (test 19 mg/dL 7-18 code=BUN) GLOMERULAR FILTRATION RATE 85.7 90-95 Units of measure=ml/min/1.73 (test code=GFR) m2 CREATININE (test code=CREAT) 1.1 mg/dL 0.6-1.3 CALCIUM (test code=CA) 8.9 mg/dL 8.0-10.5 CBC W/AUTO [id number] 08:03:00 Test Item Value Reference Range Comments WHITE BLOOD CELL (test code=WBC) 18.52 x10 3/uL 4.5-11.0 RED BLOOD CELL (test code=RBC) 5.06 x10 6/uL 4.00-5.60 HEMOGLOBIN (test code=HGB) 14.8 g/dL 12.5-16.9 HEMATOCRIT (test code=HCT) 46.3 % 37.5-50.7 MEAN CELL VOLUME (test code=MCV) 91.5 fL 81.0-99.0 MEAN CELL HGB (test code=MCH) 29.2 pg 27.0-33.0 MEAN CELL HGB CONCETRATION (test code=MCHC) 32.0 g/dL 33.0-37.0 RED CELL DISTRIBUTION WIDTH CV (test 14.2 % 11.5-14.5 code=RDW) RED CELL DISTRIBUTION WIDTH SD (test 47.6 fL 37.0-54.0 code=RDW-SD) PLATELET COUNT (test code=PLT) 303 x10 3/uL 150-400 MEAN PLATELET VOLUME (test code=MPV) 11.0 fL 7.0-9.0 NEUTROPHIL % (test code=NT%) 80.9 % 56.0-77.0 IMMATURE GRANULOCYTE % (test code=IG%) 2.0 % 0.0-2.0 LYMPHOCYTE % (test code=LY%) 9.6 % 14.0-32.0 MONOCYTE % (test code=MO%) 7.3 % 4.8-9.0 EOSINOPHIL % (test code=EO%) 0.0 % 0.3-3.7 BASOPHIL % (test code=BA%) 0.2 % 0.0-2.0 NUCLEATED RBC % (test code=NRBC%) 0.0 % 0-0 NEUTROPHIL # (test code=NT#) 14.99 x10 3/uL 2.0-7.6 IMMATURE GRANULOCYTE # (test code=IG#) 0.37 x10 3/uL 0.00-0.03 LYMPHOCYTE # (test code=LY#) 1.77 x10 3/uL 1.0-3.8 MONOCYTE # (test code=MO#) 1.36 x10 3/uL 0.1-0.8 EOSINOPHIL # (test code=EO#) 0.00 x10 3/uL 0.0-0.2 BASOPHIL # (test code=BA#) 0.03 x10 3/uL 0.0-0.2 NUCLEATED RBC # (test code=NRBC#) 0.00 x10 3/uL 0.0-0.1 MANUAL DIFF REQUIRED (test code=MDIFF) NO [id number] 20:23:00 Test Item Value Reference Range Comments GLUBED (test code=GLUBED) 279 MG/DL 70-110 Performed by certified line up machine operator at [facility] [id number] 16:48:00 Test Item Value Reference Range Comments GLUBED (test code=GLUBED) 157 MG/DL 70-110 Performed by certified line up machine operator at [facility] [id number] 12:46:00 Test Item Value Reference Range Comments GLUBED (test code=GLUBED) 188 MG/DL 70-110 Performed by certified line up machine operator at [facility] [id number] 08:47:00 Test Item Value Reference Range Comments GLUBED (test code=GLUBED) 157 MG/DL 70-110 Performed by certified line up machine operator at [facility] BASIC METABOLIC [id number] 07:50:00 Test Item Value Reference Range Comments SODIUM (test code=NA) 134 mEq/L 134-147 POTASSIUM (test code=K) 4.3 mEq/L 3.4-5.0 CHLORIDE (test code=CL) 101 mEq/L 100-108 CARBON DIOXIDE (test code=CO2) 26 mEq/L 21-33 ANION GAP (test code=GAP) 11 0-20 GLUCOSE (test code=GLU) 137 mg/dL 70-110 BLOOD UREA NITROGEN (test 19 mg/dL 7-18 code=BUN) GLOMERULAR FILTRATION RATE 85.7 90-95 Units of measure=ml/min/1.73 (test code=GFR) m2 CREATININE (test code=CREAT) 1.1 mg/dL 0.6-1.3 CALCIUM (test code=CA) 9.2 mg/dL 8.0-10.5 CBC W/AUTO [id number] 07:13:00 Test Item Value Reference Range Comments WHITE BLOOD CELL (test code=WBC) 21.87 x10 3/uL 4.5-11.0 RED BLOOD CELL (test code=RBC) 5.08 x10 6/uL 4.00-5.60 HEMOGLOBIN (test code=HGB) 14.6 g/dL 12.5-16.9 HEMATOCRIT (test code=HCT) 46.6 % 37.5-50.7 MEAN CELL VOLUME (test code=MCV) 91.7 fL 81.0-99.0 MEAN CELL HGB (test code=MCH) 28.7 pg 27.0-33.0 MEAN CELL HGB CONCETRATION (test code=MCHC) 31.3 g/dL 33.0-37.0 RED CELL DISTRIBUTION WIDTH CV (test 13.8 % 11.5-14.5 code=RDW) RED CELL DISTRIBUTION WIDTH SD (test 46.5 fL 37.0-54.0 code=RDW-SD) PLATELET COUNT (test code=PLT) 315 x10 3/uL 150-400 MEAN PLATELET VOLUME (test code=MPV) 10.6 fL 7.0-9.0 NEUTROPHIL % (test code=NT%) 81.8 % 56.0-77.0 IMMATURE GRANULOCYTE % (test code=IG%) 2.1 % 0.0-2.0 LYMPHOCYTE % (test code=LY%) 8.5 % 14.0-32.0 MONOCYTE % (test code=MO%) 7.5 % 4.8-9.0 EOSINOPHIL % (test code=EO%) 0.0 % 0.3-3.7 BASOPHIL % (test code=BA%) 0.1 % 0.0-2.0 NUCLEATED RBC % (test code=NRBC%) 0.0 % 0-0 NEUTROPHIL # (test code=NT#) 17.90 x10 3/uL 2.0-7.6 IMMATURE GRANULOCYTE # (test code=IG#) 0.46 x10 3/uL 0.00-0.03 LYMPHOCYTE # (test code=LY#) 1.85 x10 3/uL 1.0-3.8 MONOCYTE # (test code=MO#) 1.63 x10 3/uL 0.1-0.8 EOSINOPHIL # (test code=EO#) 0.00 x10 3/uL 0.0-0.2 BASOPHIL # (test code=BA#) 0.03 x10 3/uL 0.0-0.2 NUCLEATED RBC # (test code=NRBC#) 0.00 x10 3/uL 0.0-0.1 MANUAL DIFF REQUIRED (test code=MDIFF) NO [id number] 21:21:00 Test Item Value Reference Range Comments GLUBED (test code=GLUBED) 166 MG/DL 70-110 Performed by certified line up machine operator at [facility] CSF CELL [id number] 14:18:00 Test Item Value Reference Range Comments CSF TUBE # (test code=BFCSFT) TUBE #3 - CELL COUNT CSF APPEARANCE (test code=APPCSF) CLEAR CLEAR CSF WBC (test code=WBCCSF) 1 MM3 0-5 CSF RBC (test code=RBCCSF) 470 MM3 0-0 CSF POLY (test code=POLYCSF) 39 % 0-7 CSF LYMPHOCYTE (test code=LYMPHCSF) 57 % 28-96 CSF MONOCYTE (test code=MONOCSF) 4 % 16-56 CSF [id number] 13:43:00 Test Item Value Reference Range Comments CSF COLOR (test code=COLCSF) COLORLESS COLORLESS CSF TUBE # (test code=TUBECSF) TUBE #2 - GLU/PROT CSF GLUCOSE (test code=GLUCSF) 91 MG/DL 40-80 CSF TOTAL PROTEIN (test code=PROTCSF) 126.1 mg/dL 15-45 COMMENTS: PLEASE USE TUBE #2CSF [id number] 13:42:00 Test Item Value Reference Range Comments CSF COLOR (test code=COLCSF) COLORLESS CSF TUBE # (test code=TUBECSF) CSF GLUCOSE (test code=GLUCSF) 91 MG/DL 40-80 CSF TOTAL PROTEIN (test code=PROTCSF) 126.1 mg/dL 15-45 COMMENTS: PLEASE USE TUBE #2- PUNCTURE LUMBAR [id number] 13:07:00 FAX: Tyler Hirsch [phone] [place]: St: ADM FAX: Y Naina Siegel [phone] Name: RADHA DENNISON [facility] : 1970 Age/S: 48/M [address] [place] [address] Unit #: [id number] Loc: G.44[address] [place] [address] Phys: Naina Siegel MD Acct: [id number] Dis Date: Status: ADM IN PHONE #: [phone] Exam Date: 2018 1204 FAX #: [phone] Reason: pepe LE weakness EXAMS: CPT CODE: [id number] [place] [id number] PROCEDURE: Lumbar puncture with fluoroscopic guidance. INDICATION: Lower extremity weakness. COMPARISON: Lumbar spine MRI dated 12/19/2018. TECHNICAL: Fluoroscopic time 1.6 minutes. Reference Air Kerma Dose 117 mGy. PROCEDURE: The procedure, risks, benefits and alternatives were discussed. Informed consent was obtained. Timeout was performed prior to the procedure. The patient was placed in the prone position. Posterior lower back was sterilely prepped and draped. 1% lidocaine was used for local anesthesia. 22-gauge spinal needle was advanced through the posterior L2-L3 space, into thecentral canal. Opening pressure was measured and cerebrospinal fluid was aspirated. Images were obtained to document needle position. Inner stylet was replaced, and the needle was removed. Pressure was applied at the puncture site with adequate hemostasis. Sterile dressing was applied. The patient had no complaints and there were no evident complications.FINDINGS: Opening pressure was less than 10 cm H2O. Total of 11.5 cc of clear cerebrospinal fluid was aspirated. Patient was unable to tolerate additional fluid removal. IMPRESSION: 1. Technically successful lumbar puncture using fluoroscopic guidance. at 1307 Reported and signed by: Justin Sierra M.D. PAGE 1 Signed Report (CONTINUED) FAX: Tyler Hirsch [phone] [place]: St: ADM FAX: Naina Fernandez [phone] Name: RADHA DENNISON [facility] : 1970 Age/S: 48/M [address] [place] [address] Bl Unit #: [id number] Loc: G.[address] [place] [address] Phys: Naina Siegel MD Acct: [id number] Dis Date: Status: ADM IN PHONE #: [phone] Exam Date: 12/21/2018 1204 FAX #: [phone] Reason: pepe LE weakness EXAMS: CPT CODE : [id number] [place] [id number] <Continued> CC: Tyler Hirsch DO; Naina Gerber MD Technologist: Paco Eller, RT(R); [place] RT(R)(CT) Trnscrd Date/Time/By: ([id number]) : By: [id number] Orig PrintD/T: S: 12/21/2018 (9808) PAGE 2 Signed ReportPROTHROMBIN [id number] 10:24:00 Test Item Value Reference Range Comments PROTHROMBIN TIME PATIENT 12.1 SECONDS 9.3-12.9 (test code=PTP) INTERNATIONAL NORMAL RATIO 1.1 0.8-1.2 TARGET INR BY (test code=INR) INDICATION Indication INR1. Prophylaxis of venous thrombosis 2.0 - 3.0 (orthopedic surgery), Prophylaxis of venous thrombosis (other than high-risk surgery), Treatment of Deep Vein Thrombosis/Pulmonary Embolism, Prevention of systemic embolism - Tissue heart valves, Acute Myocardial Infarction (to prevent systemic embolism), Valvular heart disease, Atrial Fibrillation, Bileaflet mechanical valve in aortic position.2. Mechanical prosthetic valves (high risk), 2.5 - 3.5 Presence of Lupus Anticoagulant or Antiphospholipid Antibodies, Prevention of systemic embolism - Acute Myocardial Infarction (to prevent recurrent infarct). THROMBOPLASTIN TIME [id number] 10:24:00 Test Item Value Reference Range Comments THROMBOPLASTIN TIME PARTIAL 47.1 Seconds 25.0-39.5 Therapeutic Range: (test code=PTT) 50.4 - 88.3 Seconds Effective 06/23/2018 [id number] 09:56:00 Test Item Value Reference Range Comments GLUBED (test code=GLUBED) 178 MG/DL 70-110 Performed by certified line up machine operator at [facility] [id number] 20:42:00 Test Item Value Reference Range Comments GLUBED (test code=GLUBED) 112 MG/DL 70-110 Performed by certified line up machine operator at [facility] [id number] 16:34:00 Test Item Value Reference Range Comments GLUBED (test code=GLUBED) 151 MG/DL 70-110 Performed by certified line up machine operator at [facility] [id number] 11:59:00 Test Item Value Reference Range Comments GLUBED (test code=GLUBED) 150 MG/DL 70-110 Performed by certified line up machine operator at [facility] [id number] 08:30:00 Test Item Value Reference Range Comments GLUBED (test code=GLUBED) 130 MG/DL 70-110 Performed by certified line up machine operator at [facility] [id number] 20:49:00 Test Item Value Reference Range Comments GLUBED (test code=GLUBED) 128 MG/DL 70-110 Performed by certified line up machine operator at [facility] [id number] 16:18:00 Test Item Value Reference Range Comments GLUBED (test code=GLUBED) 119 MG/DL 70-110 Performed by certified line up machine operator at [facility] C-SPINE W W/O [id number] 15:01:00 FAX: JoycelynTyler [phone] [place]: St: ADM FAX: Naina Fernandez ------ Name: RADHA DENNISON [facility] : 1970 Age/S: 48/M [address] [place] [address] Unit #: [id number] Loc: [address] [address] Phys : Naina Siegel MD Acct: [id number] Dis Date: Status: ADM IN PHONE #: [phone] Exam Date: 12/19/2018 1156 FAX #: [phone] Reason: cord edema noted vs myelomalacia, bilat LE weak EXAMS: CPT CODE: [id number] MRI C-SPINE W W/O CONT 98409 Clinical Indication: Cord edema noted vs myelomalacia, bilateral lower extremity weakness acute. Comparison: Cervical spine MR 12/14/2018 TECHNIQUE: Sagittal T2, sagittal T1, sagittal STIR, axial T1, axial T2 postcontrast sagittal and axial T1 MR sequences of the cervical spine. Contrast: 27 ml Dotarem, IV. FINDINGS: ALIGNMENT: Alignment is unchanged. VERTEBRAL BODIES: Redemonstration of anterior cervical segment fusion at C4-C5, in addition to laminectomy at these levels. SPINAL CORD: Volume loss in the cervical cord at C4-C5, with nonenhancing intramedullary T2 hyperintense signal (axial T2 series 10, image 15; sagittal STIR series 8, image 8). No abnormal enhancement. SOFT TISSUES:No prevertebral or paravertebral soft tissue abnormalities. Partially imaged mucosal thickening of the maxillary sinuses, without fluid level. No change in the appearance of the spinal canal and neural foramina compared to 12/14/2018. IMPRESSION: No new abnormality compared to the cervical spine MR performedon 12/14/2018. No abnormal enhancement in the cervical spine and spinal cord. Myelomalacia at C4-C5, at the level of the anterior fusion and posteriorlaminectomy. SL: [id number] PAGE 1 Signed Report (CONTINUED) FAX: Tyler Hirsch [phone] [place]: St: ADMFAX: Naina Fernandez [phone] Name: RADHA DENNISON [facility] : 1970 Age/S: 48/M [address] [place] [address] Unit #: [id number] Loc: [address] [address] Phys: Naina Siegel MD Acct: [id number] Dis Date: Status: ADM IN PHONE #: [phone] Exam Date: 12/19/2018 1156 FAX #: [phone] Reason: cord edema noted vs myelomalacia, bilat LE weak EXAMS: CPT CODE: [id number] MRI C-SPINE W W/O CONT 42138 <Continued> at 1501 Reported and signed by: Jeffrey Mejía M.D. CC: Tyler Hirsch DO; Naina Gerber MD Technologist: Alycia Hall RT(MR)(CT) Trnscrd Date/Time/By: 12/19/2018 (1501) : By: [email or web address] Orig Print D/T: S: 02/2019 (150) PAGE 2 Signed Report- MRI L-SPINE W WO [id number] 14:54:00 FAX: Tyler Hirsch [place]: St: ADM FAX: Naina Fernandez [phone] - Name: RADHA DENNISON [facility] : 1970 Age/S: 48/M [address] [place] [address] Unit #: [id number] Loc: G.[address] [place] [address] Phys: Naina Siegel MD Acct: [id number] Dis Date: Status: ADM IN PHONE #: [phone] Exam Date: 12/19/2018 1156 FAX #: [phone] Reason: cord edema noted vs myelomalacia, bilat LE weak EXAMS: CPT CODE: [id number] MRI L-SPINE W WO CON 96871 Clinical Indication: Cord edema noted vs myelomalacia. Bilateral lower extremity weakness Comparison: Lumbar spine MR 12/11/2018 TECHNIQUE: Multiplanar T1, T2, STIR weighted noncontrast MRI of the lumbar spine is performed before and after the administration of intravenous contrast. CONTRAST: 27 mL Dotarem FINDINGS: ALIGNMENT: Normal lumbar lordosis. SOFT TISSUES: The anterior and posterior paraspinal soft tissues are normal. No abnormal enhancement. Nonenhancing cyst in the right kidney. The partially imaged abdomen is unremarkable. PARASPINAL MUSCULATURE: There is no muscular atrophy. CONUS MEDULLARIS: The conus medullaris terminates at L1. No enhancementof the cauda equina. No enhancement in the partially imaged distal thoracic cord. VERTEBRAL BODIES: The bone marrow is normal for the patient?s age. There is no acute fracture, signs of infection or abnormal enhancement. For the sake of nomenclature, five lumbar vertebrae are assumed. DEGENERATIVE CHANGES: Prominent epidural fat in the lumbar spine. T12-L1: Normal disc height and signal. Nodisc protrusion or extrusion. No spinal canal or foraminal stenosis L1-L2: Normal disc height and signal. No disc protrusion or extrusion. PAGE 1 Signed Report (CONTINUED ) FAX: Tyler Hirsch [phone] [place]: St: ADM FAX: Y Naina Siegel [phone] Name: RADHA DENNISON [facility] : 1970 Age/S: 48/M [address] [place] [address] Blvd Unit #: [id number] Loc: [address] [place] [address] Phys: Naina Siegel MD Acct: [id number] Dis Date: Status: ADM IN PHONE #: [phone] Exam Date: 12/19/2018 1156 FAX #: [phone] Reason: cord edema noted vs myelomalacia, bilat LE weak EXAMS: CPT CODE: [id number] MRI L-SPINE W WO CON 38006 <Continued> No spinal canal or foraminal stenosis L2-L3: Normal disc height and signal. No disc protrusion or extrusion. Epidural fat compresses the thecal sac and results in crowding of the cauda equina (series 7, image 18). No foraminal stenosis. L3-L4: Normal disc height and signal. No disc protrusion or extrusion. Epidural fat compresses the thecal sac and results in crowding of the cauda equina (series 7, image 24). No foraminal stenosis. L4-L5: Normal disc height and signal. No disc protrusion or extrusion. Epidural fateffaces the thecal sac and results in crowding of the cauda equina (series 7, image 34).No foraminal stenosis. L5-S1: Normal disc height and signal. No disc protrusion or extrusion. Epidural lipomatosis again noted , which completely effaces the CSF. No foraminal stenosis. IMPRESSION: No abnormal enhancement in the lumbar spine. No new abnormality compared to the lumbar spine MR performed on 12/11. No acute fracture, disc herniation or foraminal stenosis in the lumbar spine. Epidural lipomatosis results in effacement of the CSF/thecal sac and crowding of the nerve roots from L2-L3 through L5-S1, most pronounced at L5-S1. PAGE 2 Signed Report (CONTINUED) FAX: Tyler Hirsch [phone] [place]: St: ADM FAX: Naina Fernandez [phone] Name: RADHA DENNISON [facility] : 1970 Age/S: 48/M[address] [facility] [address] Unit #: [id number] Loc: [address] [address] Phys: Naina Siegel MD Acct: [id number] Dis Date: Status: ADM IN PHONE #: [phone] ExamDate: 12/19/2018 1156 FAX #: [phone] Reason: cord edema noted vs myelomalacia, bilat LE weak EXAMS: CPT CODE: [id number] MRI L-SPINE W WO CON 00219 <Continued&gt ; SL: [id number] at 5703 Reported and signed by: Jeffrey Mejía M.D. CC: Tyler Hirsch DO; Naina Gerber MD Technologist: Alycia Hall RT(MR)(CT) Trnscrd Date/Time/By: 12/19/2018 (145) : By: [email or web address] Orig Print D/T: S: 02/2019 (0924) PAGE 3 Signed [id number] 12:14:00 Test Item Value Reference Range Comments GLUBED (test code=GLUBED) 145 MG/DL 70-110 Performed by certified line up machine operator at [facility] [id number] 12:14:00 Test Item Value Reference Range Comments GLUBED (test code=GLUBED) 105 MG/DL 70-110 Performed by certified line up machine operator at [facility] [id number] 20:33:00 Test Item Value Reference Range Comments GLUBED (test code=GLUBED) 119 MG/DL 70-110 Performed by certified line up machine operator at [facility] CBC W/AUTO [id number] 08:59:00 Test Item Value Reference Range Comments WHITE BLOOD CELL (test code=WBC) 16.80 x10 3/uL 4.5-11.0 RED BLOOD CELL (test code=RBC) 5.09 x10 6/uL 4.00-5.60 HEMOGLOBIN (test code=HGB) 14.8 g/dL 12.5-16.9 HEMATOCRIT (test code=HCT) 46.3 % 37.5-50.7 MEAN CELL VOLUME (test code=MCV) 91.0 fL 81.0-99.0 MEAN CELL HGB (test code=MCH) 29.1 pg 27.0-33.0 MEAN CELL HGB CONCETRATION (test code=MCHC) 32.0 g/dL 33.0-37.0 RED CELL DISTRIBUTION WIDTH CV (test 13.4 % 11.5-14.5 code=RDW) RED CELL DISTRIBUTION WIDTH SD (test 45.4 fL 37.0-54.0 code=RDW-SD) PLATELET COUNT (test code=PLT) 304 x10 3/uL 150-400 MEAN PLATELET VOLUME (test code=MPV) 11.8 fL 7.0-9.0 NEUTROPHIL % (test code=NT%) 66.1 % 56.0-77.0 IMMATURE GRANULOCYTE % (test code=IG%) 1.4 % 0.0-2.0 LYMPHOCYTE % (test code=LY%) 22.7 % 14.0-32.0 MONOCYTE % (test code=MO%) 9.2 % 4.8-9.0 EOSINOPHIL % (test code=EO%) 0.2 % 0.3-3.7 BASOPHIL % (test code=BA%) 0.4 % 0.0-2.0 NUCLEATED RBC % (test code=NRBC%) 0.0 % 0-0 NEUTROPHIL # (test code=NT#) 11.12 x10 3/uL 2.0-7.6 IMMATURE GRANULOCYTE # (test code=IG#) 0.24 x10 3/uL 0.00-0.03 LYMPHOCYTE # (test code=LY#) 3.81 x10 3/uL 1.0-3.8 MONOCYTE # (test code=MO#) 1.54 x10 3/uL 0.1-0.8 EOSINOPHIL # (test code=EO#) 0.03 x10 3/uL 0.0-0.2 BASOPHIL # (test code=BA#) 0.06 x10 3/uL 0.0-0.2 NUCLEATED RBC # (test code=NRBC#) 0.00 x10 3/uL 0.0-0.1 MANUAL DIFF REQUIRED (test code=MDIFF) NO [id number] 08:35:00 Test Item Value Reference Range Comments GLUBED (test code=GLUBED) 98 MG/DL 70-110 Performed by certified line up machine operator at [facility] - MRI BRAIN WO/W [id number] 22:01:00 FAX: Tyler Hirsch [phone] [place]: St: ADM FAX: Lilliana Velasquez COLD ROLLING COORDINATOR Name: RADHA DENNISON [facility] : 1970 Age/S: 48/M [address] [place] [address] Unit #: [id number] Loc: [address] [address] Phys: Lilliana Velasquez NP Acct: [id number] Dis Date: Status: ADM IN PHONE #: [phone] Exam Date: 12/17/2018 185 FAX #: [phone] Reason: R/O DEMYEINTION DISEASES EXAMS: CPT CODE: [id number] MRI BRAIN WO/W CONT 23338 MRI BRAIN WITH CONTRAST INDICATION: Possible demyelinating disease. Bilateral lower extremity weakness. Abnormal lesion within the thoracic spinal cord.. TECHNIQUE: 26 mL Dotarem intravenous contrast was administered. Multiple MR sequences of the brain were performed in multiple planes. COMPARISONS: MRI cervical spine 12/14. MRI thoracic spine 12/16/2018. CT head from [facility] dated 09/06/2017. FINDINGS: Thereis mild left maxillary sinus mucosal thickening without a fluid level. The mastoid air cells and middle ears appear clear as visualized. The vascular flow voids are preserved. There is no restricted water diffusion. The cerebral ventricles are normal caliber. There is stable chronic encephalomalacia of the basal right frontal lobe with overlying calvarial defect. There is mild hemosiderin staining along the anterior margin of the encephalomalacia. There is no cerebral mass effect, midline shift,intracranial hemorrhage or acute cerebral edema. There is no abnormal intracranial enhancement. There are no demyelinating plaques. IMPRESSION: 1. Thereis no acute intracranial process. There is no acute ischemia, cerebral edema, evidence of demyelination or mass. 2. There is chronic right frontal encephalomalacia. at 2201 Reported and signed by: Mohit Martinez D.O. PAGE 1 Signed Report (CONTINUED) FAX: Tyler Hirsch [phone] [place]: St: [facility] FAX: Lilliana Velasquez COLD ROLLING COORDINATOR Name: RADHA DENNISON [facility] : 1970 Age/S: 48/M [address] [place] [address] BlvdUnit #: [id number] Loc: [address] [address] Phys: Lilliana Velasquez NP Acct: [id number] Dis Date: Status: ADM IN PHONE #: [phone] Exam Date: 12/17/2018 185 FAX #: [phone] Reason: R/O DEMYEINTION DISEASES EXAMS: CPT CODE: [id number] MRI BRAIN WO/W CONT 65006 <Continued > CC: Tyler Hirsch DO; Lilliana Velasquez NP Technologist: Praveen Castillo, RT(R)(CT)Trnscrd Date/Time/By: 12/17/2018 (2200) : By: [email or web address] Orig Print D/T: S: 12/17/2018 (2203) PAGE 2 Signed [id number] 21:31:00 Test Item Value Reference Range Comments GLUBED (test code=GLUBED) 139 MG/DL 70-110 Performed by certified line up machine operator at [facility] - DUP VEIN [id number] 20:29:00 Name: RADHA DENNISON [facility] : 1970 Age/S: 48 / M [address] [place] [address] Blvd Unit #: [id number] Loc: [place] [id number] Phys: Graciela Gonzalez MD Acct: [id number] Dis Date: Status: ADM IN PHONE #: [phone] Exam Date: 12/17/20182001 FAX #: [phone] Reason: right leg pain/ swollen EXAMS: CPTCODE: [id number] [facility] VEIN PEPE [address]54 PROCEDURE: BILATERAL LOWER EXTREMITY DOPPLER VENOUS ULTRASOUND INDICATION: Right leg swelling and pain COMPARISON: 12/12/2018 Doppler venous ultrasound lower extremity TECHNIQUE: Sonographic evaluation of the bilateral lower extremity veins was performed using high resolution B-mode, pulse and color Doppler imaging. FINDINGS: RIGHT: The common femoral , femoral, popliteal and visualized calf veins are patent. Normal venous waveforms. The saphenofemoral junction is unremarkable. LEFT : The common femoral, femoral, popliteal and visualized calf veins are patent. Normal venous waveforms. Saphenofemoral junction is unremarkable. IMPRESSION: No deep venous thrombosis. END REPORT SL: [id number] Electronically Signed by Elfego Carnes on 12/2018 at 2028 Reported and signed by: Darron Carnes M.D. CC: Tyler Hirsch DO; Graciela Gonzalez MD Technologist: Alize Crouch RDMS(OB)(AB) Trnscb Date/Time: 12/17/2018 (2028) [email or web address] Orig Print D/T: S: 12/17/2018 (2031) Probe: PAGE 1 Signed [id number] 17:17:00 Test Item Value Reference Range Comments GLUBED (test code=GLUBED) 134 MG/DL 70-110 Performed by certified line up machine operator at [facility] [id number] 12:52:00 Test Item Value Reference Range Comments GLUBED (test code=GLUBED) 137 MG/DL 70-110 Performed by certified line up machine operator at [facility] COMPREHENSIVE METABOLIC [id number] 07:55:00 Test Item Value Reference Range Comments SODIUM (test code=NA) 136 mEq/L 134-147 POTASSIUM (test code=K) 4.5 mEq/L 3.4-5.0 CHLORIDE (test code=CL) 100 mEq/L 100-108 CARBON DIOXIDE (test code=CO2) 32 mEq/L 21-33 ANION GAP (test code=GAP) 9 0-20 GLUCOSE (test code=GLU) 97 mg/dL 70-110 BLOOD UREA NITROGEN (test 16 mg/dL 7-18 code=BUN) GLOMERULAR FILTRATION RATE 95.7 90-95 Units of (test code=GFR) measure=ml/min/1.73 m2 CREATININE (test code=CREAT) 1.0 mg/dL 0.6-1.3 TOTAL PROTEIN (test code=PROT) 7.6 g/dL 6.4-8.2 ALBUMIN (test code=ALB) 3.70 g/dL 3.4-5.0 CALCIUM (test code=CA) 10.2 mg/dL 8.0-10.5 BILIRUBIN TOTAL (test 0.2 MG/DL <1.5 code=BILT) SGOT/AST (test code=AST) 20 IUnit/L 15-37 SGPT/ALT (test code=ALT) 52 IUnit/L 15-65 ALKALINE PHOSPHATASE TOTAL 92 IUnit/L 20-125 (test code=ALKP) [id number] 07:36:00 Test Item Value Reference Range Comments GLUBED (test code=GLUBED) 111 MG/DL 70-110 Performed by certified line up machine operator at [facility] CBC W/AUTO [id number] 07:10:00 Test Item Value Reference Range Comments WHITE BLOOD CELL (test code=WBC) 15.07 x10 3/uL 4.5-11.0 RED BLOOD CELL (test code=RBC) 5.11 x10 6/uL 4.00-5.60 HEMOGLOBIN (test code=HGB) 14.9 g/dL 12.5-16.9 HEMATOCRIT (test code=HCT) 46.8 % 37.5-50.7 MEAN CELL VOLUME (test code=MCV) 91.6 fL 81.0-99.0 MEAN CELL HGB (test code=MCH) 29.2 pg 27.0-33.0 MEAN CELL HGB CONCETRATION (test code=MCHC) 31.8 g/dL 33.0-37.0 RED CELL DISTRIBUTION WIDTH CV (test 13.2 % 11.5-14.5 code=RDW) RED CELL DISTRIBUTION WIDTH SD (test 45.3 fL 37.0-54.0 code=RDW-SD) PLATELET COUNT (test code=PLT) 294 x10 3/uL 150-400 MEAN PLATELET VOLUME (test code=MPV) 10.9 fL 7.0-9.0 NEUTROPHIL % (test code=NT%) 69.1 % 56.0-77.0 IMMATURE GRANULOCYTE % (test code=IG%) 1.7 % 0.0-2.0 LYMPHOCYTE % (test code=LY%) 19.7 % 14.0-32.0 MONOCYTE % (test code=MO%) 9.1 % 4.8-9.0 EOSINOPHIL % (test code=EO%) 0.1 % 0.3-3.7 BASOPHIL % (test code=BA%) 0.3 % 0.0-2.0 NUCLEATED RBC % (test code=NRBC%) 0.0 % 0-0 NEUTROPHIL # (test code=NT#) 10.41 x10 3/uL 2.0-7.6 IMMATURE GRANULOCYTE # (test code=IG#) 0.25 x10 3/uL 0.00-0.03 LYMPHOCYTE # (test code=LY#) 2.97 x10 3/uL 1.0-3.8 MONOCYTE # (test code=MO#) 1.37 x10 3/uL 0.1-0.8 EOSINOPHIL # (test code=EO#) 0.02 x10 3/uL 0.0-0.2 BASOPHIL # (test code=BA#) 0.05 x10 3/uL 0.0-0.2 NUCLEATED RBC # (test code=NRBC#) 0.00 x10 3/uL 0.0-0.1 MANUAL DIFF REQUIRED (test code=MDIFF) NO [id number] 20:21:00 Test Item Value Reference Range Comments GLUBED (test code=GLUBED) 191 MG/DL 70-110 Performed by certified line up machine operator at [facility] [id number] 17:08:00 Test Item Value Reference Range Comments GLUBED (test code=GLUBED) 168 MG/DL 70-110 Performed by certified line up machine operator at [facility] - MRI THORACIC SPINE WO/W [id number] 15:49:00 FAX: Kendra Miller NP [place]: St: ADM FAX: Tyler Hirsch [phone] ------- Name: RADHA DENNISON [facility] : 1970 Age/S: 48/M [address] [place] [address] Unit #: [id number] Loc: [address] [address] Phys : Kendra Miller NP Acct: [id number] Dis Date: Status: ADM IN PHONE #: [phone] Exam Date: 12/16/2018 1512 FAX #: [phone] Reason: BLE weakness EXAMS: CPT CODE: [id number] MRI THORACIC SPINE WO/W CON 79533 Patient Name: RADHA DENNISON : 1970; Age: 48 years y/o Male MR: [id number] Study: - MRI THORACIC SPINE WO/W CON 2018 2:05 PM Ordering Physician: Kendra Miller NP Clinical Indication: ; BLE weakness Comparison: None TECHNIQUE: Multiplanar T1, T2, STIR weighted and postcontrast MRI of the thoracic spine is performed on the 1.5 Harmony magnet. Contrast: 26 cc of Dotarem were administered. FINDINGS: ALIGNMENT AND GENERAL ASSESSMENT: Normal thoracic kyphosis. No acute fracture or malalignment identified. T2 hyperintensity is seen within the right cervical thoracic cord at the T1-T2 level. No definite abnormal enhancement. The post contrast and STIR sequences are degraded by patient motion. DISC SPACES: Moderate narrowing of the bilateral T10-T11 neural foramina. No significant spinal canal stenosis. IMPRESSION: 1. Nonspecific spinal cord demyelination at the right T1-T2 level. Correlate clinically for an underlying demyelinating disease such as multiple sclerosis. 2. No abnormal enhancement identified. SL: [id number] at 1549 Reported and signed by: Kaden Sousa M.D. PAGE 1 Signed Report (CONTINUED) FAX: Kendra Miller NP [place]: St: ADM FAX: Tyler Hirsch [phone] Name: RADHA DENNISON [facility] : 1970 Age/S: 48/M [address] [place] [address] Unit #: [id number] Loc: [address] [place] [address] Phys: Kendra Miller NP Acct: [id number] Dis Date: Status: ADM IN PHONE #: [phone] Exam Date: 12/16/2018 1512 FAX #: [phone] Reason: BLE weakness EXAMS: CPT CODE: [id number] MRI THORACIC SPINE WO /W CON 76824 <Continued> CC: Kendra Miller COLD ROLLING COORDINATOR; Tyler Hirsch DO Technologist: RT Juan(Dayo)(CT)(MR) [place]rd Date/Time/By: 12/16/2018 (1958) : By: [email or web address] Orig Print D/T: S: 11/2018 (9508) PAGE 2 Signed [id number] 12:18:00 Test Item Value Reference Range Comments GLUBED (test code=GLUBED) 104 MG/DL 70-110 Performed by certified line up machine operator at [facility] COMPREHENSIVE METABOLIC [id number] 09:27:00 Test Item Value Reference Range Comments SODIUM (test code=NA) 137 mEq/L 134-147 POTASSIUM (test code=K) 4.3 mEq/L 3.4-5.0 CHLORIDE (test code=CL) 101 mEq/L 100-108 CARBON DIOXIDE (test code=CO2) 30 mEq/L 21-33 ANION GAP (test code=GAP) 10 0-20 GLUCOSE (test code=GLU) 97 mg/dL 70-110 BLOOD UREA NITROGEN (test 13 mg/dL 7-18 code=BUN) GLOMERULAR FILTRATION RATE 85.7 90-95 Units of (test code=GFR) measure=ml/min/1.73 m2 CREATININE (test code=CREAT) 1.1 mg/dL 0.6-1.3 TOTAL PROTEIN (test code=PROT) 7.1 g/dL 6.4-8.2 ALBUMIN (test code=ALB) 3.50 g/dL 3.4-5.0 CALCIUM (test code=CA) 8.8 mg/dL 8.0-10.5 BILIRUBIN TOTAL (test 0.4 MG/DL <1.5 code=BILT) SGOT/AST (test code=AST) 22 IUnit/L 15-37 SGPT/ALT (test code=ALT) 50 IUnit/L 15-65 ALKALINE PHOSPHATASE TOTAL 85 IUnit/L 20-125 (test code=ALKP) LIPID PROFILE (CORONARY RISK)2018-12-16 09:27:00 Test Item Value Reference Range Comments TRIGLYCERIDES (test 147 mg/dL 40-150 code=TRIG) CHOLESTEROL (test code=CHOL) 248 mg/dL <200 CHOLESTEROL/HDL RATIO (test 5.17 RATIO 3.43-4.97 RISK ASSOCIATED WITH CHOL/ HDL code=CHOLHDL) RATIOS: RISK MALE FEMALE1/2 AVERAGE 3.43 3.27AVERAGE 4.97 4.442X AVERAGE 9.55 7.053X AVERAGE 23.39 11.04 NOTE THAT THE REFERENCE VALUE IS RELATEDTO RISK LEVELS RECOMMENDED BY THE NATL.HEART, LUNG, AND BLOOD INST. HDL CHOLESTEROL (test 48.0 mg/dL 32-72 code=HDL) LIPOPROTEIN LDL (test 165 mg/dL 0-100 <100 [id number] NEAR code=LDL) OPTIMAL/ABOVE [id number] HIGH>YO=813 VERY HIGH*Guidelines provided by the National Cholesterol EducationProgram Adult Treatment Panel III TSH REFLEX TO [id number] 09:27:00 Test Item Value Reference Range Comments TSH REFLEX TO FT4 (test code=TSHREFLEX) 1.98 IU/mL 0.42-5.47 HGBA1C%2018-12-16 09:04:00 Test Item Value Reference Range Comments HGBA1C% (test code=HGBA1C%) 6.4 %A1C 4.8-6.0 [id number] 08:28:00 Test Item Value Reference Range Comments GLUBED (test code=GLUBED) 105 MG/DL 70-110 Performed by certified line up machine operator at [facility] CBC W/AUTO [id number] 05:45:00 Test Item Value Reference Range Comments WHITE BLOOD CELL (test code=WBC) 14.28 x10 3/uL 4.5-11.0 RED BLOOD CELL (test code=RBC) 4.69 x10 6/uL 4.00-5.60 HEMOGLOBIN (test code=HGB) 13.9 g/dL 12.5-16.9 HEMATOCRIT (test code=HCT) 42.7 % 37.5-50.7 MEAN CELL VOLUME (test code=MCV) 91.0 fL 81.0-99.0 MEAN CELL HGB (test code=MCH) 29.6 pg 27.0-33.0 MEAN CELL HGB CONCETRATION (test code=MCHC) 32.6 g/dL 33.0-37.0 RED CELL DISTRIBUTION WIDTH CV (test 13.4 % 11.5-14.5 code=RDW) RED CELL DISTRIBUTION WIDTH SD (test 45.5 fL 37.0-54.0 code=RDW-SD) PLATELET COUNT (test code=PLT) 263 x10 3/uL 150-400 MEAN PLATELET VOLUME (test code=MPV) 10.6 fL 7.0-9.0 NEUTROPHIL % (test code=NT%) 67.2 % 56.0-77.0 IMMATURE GRANULOCYTE % (test code=IG%) 1.6 % 0.0-2.0 LYMPHOCYTE % (test code=LY%) 21.8 % 14.0-32.0 MONOCYTE % (test code=MO%) 9.0 % 4.8-9.0 EOSINOPHIL % (test code=EO%) 0.1 % 0.3-3.7 BASOPHIL % (test code=BA%) 0.3 % 0.0-2.0 NUCLEATED RBC % (test code=NRBC%) 0.0 % 0-0 NEUTROPHIL # (test code=NT#) 9.59 x10 3/uL 2.0-7.6 IMMATURE GRANULOCYTE # (test code=IG#) 0.23 x10 3/uL 0.00-0.03 LYMPHOCYTE # (test code=LY#) 3.11 x10 3/uL 1.0-3.8 MONOCYTE # (test code=MO#) 1.29 x10 3/uL 0.1-0.8 EOSINOPHIL # (test code=EO#) 0.02 x10 3/uL 0.0-0.2 BASOPHIL # (test code=BA#) 0.04 x10 3/uL 0.0-0.2 NUCLEATED RBC # (test code=NRBC#) 0.00 x10 3/uL 0.0-0.1 MANUAL DIFF REQUIRED (test code=MDIFF) NO [id number] 00:44:00 Test Item Value Reference Range Comments TROPONIN-I (test < 0.015 ng/mL 0.000-0.045 Negative: <=0.045 code=TROPI) Positive: >=0.046 Correlation with serial results, other cardiac markers andclinical findings is necessary to determine the clinicalsignificance of this result. Results using different methodologies should not be comparedto one another as quantitative results may vary by method. [id number] 21:32:00 Test Item Value Reference Range Comments GLUBED (test code=GLUBED) 140 MG/DL 70-110 Performed by certified line up machine operator at [facility] [id number] 20:42:00 Test Item Value Reference Range Comments TROPONIN-I (test < 0.015 ng/mL 0.000-0.045 Negative: <=0.045 code=TROPI) Positive: >=0.046 Correlation with serial results, other cardiac markers andclinical findings is necessary to determine the clinicalsignificance of this result. Results using different methodologies should not be comparedto one another as quantitative results may vary by method. T4 [id number] 17:39:00 Test Item Value Reference Range Comments T4 FREE (test code=T4F) 0.7 ng/dL 0.77-1.61 THYROID STIMULATING [id number] 17:39:00 Test Item Value Reference Range Comments THYROID STIMULATING HORMONE (test 3.45 0.42-5.47 Results in [employer] code=TSH) Units/mL [id number] 17:32:00 Test Item Value Reference Range Comments TROPONIN-I (test < 0.015 ng/mL 0.000-0.045 Negative: <=0.045 code=TROPI) Positive: >=0.046 Correlation with serial results, other cardiac markers andclinical findings is necessary to determine the clinicalsignificance of this result. Results using different methodologies should not be comparedto one another as quantitative results may vary by method. [id number] 17:26:00 Test Item Value Reference Range Comments GLUBED (test code=GLUBED) 128 MG/DL 70-110 Performed by certified line up machine operator at [facility] [id number] 12:37:00 Test Item Value Reference Range Comments GLUBED (test code=GLUBED) 113 MG/DL 70-110 Performed by certified line up machine operator at [facility] [id number] 09:05:00 Test Item Value Reference Range Comments GLUBED (test code=GLUBED) 150 MG/DL 70-110 Performed by certified line up machine operator at [facility] CBC W/AUTO [id number] 08:10:00 Test Item Value Reference Range Comments WHITE BLOOD CELL (test code=WBC) 14.33 x10 3/uL 4.5-11.0 RED BLOOD CELL (test code=RBC) 4.36 x10 6/uL 4.00-5.60 HEMOGLOBIN (test code=HGB) 12.8 g/dL 12.5-16.9 HEMATOCRIT (test code=HCT) 39.7 % 37.5-50.7 MEAN CELL VOLUME (test code=MCV) 91.1 fL 81.0-99.0 MEAN CELL HGB (test code=MCH) 29.4 pg 27.0-33.0 MEAN CELL HGB CONCETRATION (test code=MCHC) 32.2 g/dL 33.0-37.0 RED CELL DISTRIBUTION WIDTH CV (test 13.6 % 11.5-14.5 code=RDW) RED CELL DISTRIBUTION WIDTH SD (test 46.0 fL 37.0-54.0 code=RDW-SD) PLATELET COUNT (test code=PLT) 268 x10 3/uL 150-400 MEAN PLATELET VOLUME (test code=MPV) 10.9 fL 7.0-9.0 NEUTROPHIL % (test code=NT%) 72.4 % 56.0-77.0 IMMATURE GRANULOCYTE % (test code=IG%) 1.3 % 0.0-2.0 LYMPHOCYTE % (test code=LY%) 15.1 % 14.0-32.0 MONOCYTE % (test code=MO%) 10.9 % 4.8-9.0 EOSINOPHIL % (test code=EO%) 0.1 % 0.3-3.7 BASOPHIL % (test code=BA%) 0.2 % 0.0-2.0 NUCLEATED RBC % (test code=NRBC%) 0.0 % 0-0 NEUTROPHIL # (test code=NT#) 10.38 x10 3/uL 2.0-7.6 IMMATURE GRANULOCYTE # (test code=IG#) 0.18 x10 3/uL 0.00-0.03 LYMPHOCYTE # (test code=LY#) 2.16 x10 3/uL 1.0-3.8 MONOCYTE # (test code=MO#) 1.56 x10 3/uL 0.1-0.8 EOSINOPHIL # (test code=EO#) 0.02 x10 3/uL 0.0-0.2 BASOPHIL # (test code=BA#) 0.03 x10 3/uL 0.0-0.2 NUCLEATED RBC # (test code=NRBC#) 0.00 x10 3/uL 0.0-0.1 MANUAL DIFF REQUIRED (test code=IFF) NO - MRI C-SPINE W/O [id number] 13:41:00 FAX: Mejia Partida MD [phone] Camps: PM St: ADM Name: RADHA DENNISON : 1970 Age/S: 48/M [address] [facility] [place] Unit #: [id number] Loc: [address] [place] [address] Phys: Mejia Partida MD Acct: [id number] Dis Date: Status: ADM IN PHONE #: [phone] Exam Date: 12/14/2018 1255

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
[2019-05-22 11:03] VITALS: BP 144/97; TEMP 97.8; O2SAT 100
== END 2019-05-22 10:55 | disposition home or self-care (01) ==
LOC: ER 07:49
DX: S13 Dislocation and sprain of joints and ligaments at neck level (principal); V43.52XA Car driver injured in collision with other type car in traffic accident, initial encounter; Y93.89 Activity, other specified; Y92.488 Other paved roadways as the place of occurrence of the external cause; F17.210 Nicotine dependence, cigarettes, uncomplicated
CPT/HCPCS: 70450; 72125; 99284